=== PATIENT | male | born 1930 | race Hispanic/Latino ===

== ENCOUNTER 2018-09-14 07:39 | Day surgery (SDC) | payer MEDICARE, OTHER ==
[2018-08-25 14:22] VITALS: BMI 24.6
[~2018-09-14 07:39] MED LIST: Cyclopentolate 1% Opth (2 ml) OD SCH; Ketorolac Tromethamine 0.5% Opth Soln (3 ml) OD SCH; Lactated Ringer's 500 ML IV ONE; Ofloxacin 0.3% Ophth Soln OD SCH; Phenylephrine 2.5% Opht Soln OD SCH; Tropicamide 0.5% Opht Sol OD SCH
[2018-09-14] MEDS ORDERED: Povidone Iodine Ophthalmic 5% Soln ONE (07:47)
[2018-09-14] MEDS ORDERED: Tobramycin/Dexamethasone (Tobradex) Opth Sol (2.5 ml) ONE (07:48)
[2018-09-14] MEDS ORDERED: Hyaluronidase Human, Recombi 150 U/ML VIAL ONE (07:48)
[2018-09-14] MEDS ORDERED: Carbachol 0.01% IO ONE (07:48)
[2018-09-14] MEDS ORDERED: Chondroitin/Hyaluronate Opth Syringe KIT (0.55 ml-0.5 ml) IO ONE (07:48)
[2018-09-14] MEDS ORDERED: Lidocaine 2% MPF (5 ml) Inj ONE (07:53)
[2018-09-14] MEDS ORDERED: LIDOCAINE 2% PF (2ML) ONE (07:54)
[2018-09-14] MEDS ORDERED: Lactated Ringer's 500 ML IV ONE (09:28)
[2018-09-14 10:05] VITALS: RESP 18
[2018-09-14] MEDS ORDERED: Propofol 10 mg/ml Inj (20 ML) ONE (11:45)
[2018-09-14] MEDS: Tobramycin/Dexamethasone OPHT OINT ONE ×2 (11:55→12:10)
[2018-09-14 12:35] VITALS: O2SAT 100
[2018-09-14] MEDS ORDERED: acetaZOLAMIDE 500 mg SR Cap PO ONE (12:45)
[2018-09-14 13:02] VITALS: BP 147/73; PULSE 88; TEMP 98
--- NOTE | 2018-09-18 21:18 | OP ---
PROCEDURE DATE: 09/14/2018 PREOPERATIVE DIAGNOSIS: Cataract, right eye. POSTOPERATIVE DIAGNOSES: Cataract, right eye, and miosis and floppy iris syndrome. SURGEON: Mansoor Dumas MD ANESTHESIA: Local, standby. COMPLICATIONS: None. DESCRIPTION OF PROCEDURE: The patient was brought to the operating room and local anesthesia and akinesia were achieved using a peribulbar block of approximately 3 mL of 1% lidocaine with epinephrine into the right eye. The patient was then prepped and draped in the usual sterile fashion. A lid speculum was placed and sideport incision was created. Viscoelastic was used to fill the anterior chamber. The primary incision was made and capsulorhexis was performed. A hydrodissection was carried out. During phacoemulsification of the nucleus, the iris was noted to be very floppy due to Flomax and miosis to approximately 2 to 3 mm occurred. At that time, four incisions using a 1 mm blade were carried out 90 degrees apart and iris hooks were placed into the eye and used to retract the iris. Phacoemulsification was then resumed with the complete removal of the nucleus. Irrigation aspiration of the cortex was then performed. The capsular bag was refilled using viscoelastic and a posterior chamber lens was placed into the capsular bag and easily centered. Viscoelastic was irrigated from the eye. The iris hooks were removed. Miochol was instilled causing good symmetric pupillary constriction. The sideport was hydrated. The eye was noted to be of good pressure. The lid speculum was removed. A TobraDex-soaked collagen shield was placed onto the cornea. TobraDex ointment was placed onto the eye. Patch and shield was placed over the eye and the patient was taken from the operating room in excellent condition. Mansoor Dumas MD
== END 2018-09-14 13:03 | disposition home or self-care (01) ==
LOC: C.SDS 07:39
PROVIDERS: ATTEND Ophthalmology
DX: H25.11 Age-related nuclear cataract, right eye (principal); H57.03 Miosis; H26.9 Unspecified cataract
CPT/HCPCS: 66984; J2704; J3470; J7120; V2632

== ENCOUNTER 2018-10-12 10:09 | Day surgery (SDC) | payer MEDICARE, OTHER ==
[2018-08-25 14:22] VITALS: BMI 24.6
[~2018-10-12 10:09] MED LIST changes: +Chondroitin/Hyaluronate Opth Syringe KIT (0.55 ml-0.5 ml) IO ONE; -Cyclopentolate 1% Opth (2 ml) OD SCH; +Cyclopentolate 1% Opth (2 ml) OS SCH; +Hyaluronidase Human, Recombi 150 U/ML VIAL ONE; -Ketorolac Tromethamine 0.5% Opth Soln (3 ml) OD SCH; +Ketorolac Tromethamine 0.5% Opth Soln (3 ml) OS SCH; +Lidocaine 2% MPF (5 ml) Inj ONE; -Ofloxacin 0.3% Ophth Soln OD SCH; +Ofloxacin 0.3% Ophth Soln OS SCH; -Phenylephrine 2.5% Opht Soln OD SCH; +Phenylephrine 2.5% Opht Soln OS SCH; +Povidone Iodine Ophthalmic 5% Soln ONE; -Tropicamide 0.5% Opht Sol OD SCH; +Tropicamide 0.5% Opht Sol OS SCH
[2018-10-12] MEDS ORDERED: Lactated Ringer's 500 ML IV ONE (11:20)
[2018-10-12 11:47] VITALS: PULSE 79; RESP 18; TEMP 97.3; O2SAT 98
[2018-10-12] MEDS ORDERED: Propofol 10 mg/ml Inj (20 ML) ONE (12:49)
[2018-10-12] MEDS ORDERED: Carbachol 0.01% IO ONE (13:10)
[2018-10-12] MEDS ORDERED: Hyaluronate Sodium 10 mg/ml Ophth Syringe ONE (13:29)
[2018-10-12] MEDS ORDERED: acetaZOLAMIDE 500 mg SR Cap PO ONE (13:45)
[2018-10-12 14:30] VITALS: BP 123/64
--- NOTE | 2018-10-17 02:49 | OP ---
PROCEDURE DATE: 10/12/2018 SURGEON: Mansoor Dumas MD PREOPERATIVE DIAGNOSIS: Cataract of the left eye. 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 OPERATIVE PROCEDURE: Cataract extraction with implant and use of iris hooks, left eye. ANESTHESIA TYPE: Local, standby. COMPLICATIONS: None. DESCRIPTION OF PROCEDURE: The patient was brought into the operating room and local anesthesia was achieved using approximately 3 mL of 1% lidocaine with epinephrine in peribulbar fashion. The patient was then prepped and draped in the usual sterile fashion for surgery of the left eye. A lid speculum was placed and sideport incision was created. Viscoelastic was used to fill the anterior chamber. A primary incision was then made using a 3.4 blade and capsulorrhexis was performed. Hydrodissection was then performed as well. Phacoemulsification of the nucleus was begun and the iris was noted to be floppy and the pupil constricted to approximately 2 to 3 mm. At that point, viscoelastic was replaced into the eye and iris hooks were placed through four stab incisions that were made 90 degrees apart. At that point, phacoemulsification of the nucleus was performed without difficulty and cortical cleanup was achieved as well. The capsular bag was refilled using viscoelastic and a posterior chamber lens was placed into the capsular bag and easily centered. The iris hooks were then removed. Viscoelastic was aspirated from the eye. Miochol was instilled causing good symmetric pupillary constriction. The incisions were hydrated and were found to be watertight. A TobraDex soaked collagen shield was then placed on to the eye. TobraDex ointment was placed onto the eye. The lid speculum was removed. Patch and shield were placed over the eye and the patient was taken from the operating room in excellent condition. Mansoor Dumas MD
== END 2018-10-12 14:15 | disposition home or self-care (01) ==
LOC: C.SDS 10:09
PROVIDERS: ATTEND Ophthalmology
DX: H25.12 Age-related nuclear cataract, left eye (principal); H21.81 Floppy iris syndrome; I10 Essential (primary) hypertension; E78.5 Hyperlipidemia, unspecified; I25.10 Atherosclerotic heart disease of native coronary artery without angina pectoris; J45.909 Unspecified asthma, uncomplicated; I25.2 Old myocardial infarction
CPT/HCPCS: 66984; J2704; J3470; J7120; V2632